=== PATIENT | female | born 1995 | race Caucasian/White ===

== ENCOUNTER 2017-06-01 06:39 | Day surgery (SDC) | payer MEDICAID, SELFPAY ==
[2017-05-31 14:27] VITALS: BMI 23.6
[2017-06-01] VITALS (9 sets, daily range): BP systolic 101–127; BP diastolic 53–81; PULSE 58–69; RESP 16–18; TEMP 36.1–36.7; O2SAT 98–100
[2017-06-01 07:00] LABS: Urine Pregnancy, HCG Qual. Negative (Negative)
--- NOTE | 2017-06-01 07:27 | HMH.ANESCL ---
[facility] Anesthesia Checklist - Patient Identification Patient Identification: Arm Band - Structural Data Admitted From: Home Planned Operative Procedure/s: right ear tube removal with tympanic membrane repair Consent for Planned Operative Procedure(s) Verified: Yes Verified Documents: Surgical Consent - Additional verifications Anesthesia Reactions: No - Airway Assessment C-Spine Mobility Assessed: Yes (MP2) TMJ Mobility Assessed: Yes Dentition: Good Dentition - Anesthesia Plan Anesthesia Risk discussed: Yes Anesthesia Plan: Verified ASA Class: II Anesthesia Type: General [facility] Anesthesia HX I have reviewed the patient's past medical history: Yes Medical History: Denies:: Cancer, Diabetes Mellitus Type 1, Diabetes Mellitus Type 2, MRSA, Seizures Other Medical History: Denies: Blood Transfusion Reaction Comment: depression, seasonal allergies, exercised induced asthma Laterality Cases: Bilateral: Myringotomy (Ear Tubes), Tonsillectomy Amputation: No Fractures: No Comment: nasal, dental
--- NOTE | 2017-06-01 08:58 | P.PN_ITS ---
[facility] [place] Anesthesia Record Part I Intake, IV Amount: 300 Estimated blood loss (mL): 0 Urine output (mL): 0 Blood Pressure: 102/58 SaO2: 98 Pulse Rate: 58 Respiratory Rate: 16 Temperature: 97 F Patient is:: Drowsy, Nasal O2, Oral/Nasal airway Stable to PACU at:: 08:50
--- NOTE | 2017-06-01 08:58 | HMH.ANESII ---
[facility] Anesthesia Record Part II Discharge Time: 09:20 Destination: [facility] PACU nurse assessment reviewed?: Yes Patient Condition:: Good Anesthesia Complications:: None
--- NOTE | 2017-06-01 08:59 | P.PN_ITS ---
[facility] Anesthesia Record Part II Discharge Time: 09:20 Destination: [facility] PACU nurse assessment reviewed?: Yes Patient Condition:: Good Anesthesia Complications:: None
--- NOTE | 2017-06-01 09:02 | HMH.OPNOTE ---
Date of procedure: 06/01/17 Pre-op Diagnosis:: Retained tympanostomy tube with granulation of the right tympanic membrane. Post-op diagnosis:: same Procedure performed:: Removal of a right tympanostomy tube with tympanic membrane repair. Surgeon:: Va Harrison MD COMMERCIAL COORDINATOR:: Earle Paz Anesthesia: GETA Estimated blood loss (mL): 5 Operative findings:: Retained right tympanostomy tube with granulation tissue at the posterior aspect of the tube. Operative note:: Patient was brought to the operating room after informed consent was obtained. General endotracheal anesthesia was induced and LMA was placed. Her right ear was draped in the usual fashion for this procedure. Under microscopic otoscopy an ear speculum was placed in the external auditory canal. Her tympanostomy tube was gently removed with the use of alligator forceps and then the existing myringotomy was debrided with the use of a Lopes needle and alligator forceps. Once the myringotomy was debrided a small Gelfoam patch was placed over the myringotomy and then bacitracin was applied over the Gelfoam patch. The ear speculum is removed and a cotton ball placed in the Rubalc[place] and the procedure was terminated. Pathology: none sent Condition: stable Disposition: PACU Complications:: None apparent
--- NOTE | 2017-06-01 09:05 | P.OP_ITS ---
Date of procedure: 06/01/17 Pre-op Diagnosis:: Retained tympanostomy tube with granulation of the right tympanic membrane. Post-op diagnosis:: same Procedure performed:: Removal of a right tympanostomy tube with tympanic membrane repair. Surgeon:: Va Harrison MD AUTOMATION DESIGN ENGINEER:: Earle Paz Anesthesia: GETA Estimated blood loss (mL): 5 Operative findings:: Retained right tympanostomy tube with granulation tissue at the posterior aspect of the tube. Operative note:: Patient was brought to the operating room after informed consent was obtained. General endotracheal anesthesia was induced and LMA was placed. Her right ear was draped in the usual fashion for this procedure. Under microscopic otoscopy an ear speculum was placed in the external auditory canal. Her tympanostomy tube was gently removed with the use of alligator forceps and then the existing myringotomy was debrided with the use of a Lopes needle and alligator forceps. Once the myringotomy was debrided a small Gelfoam patch was placed over the myringotomy and then bacitracin was applied over the Gelfoam patch. The ear speculum is removed and a cotton ball placed in the Rubalcava and the procedure was terminated. Pathology: none sent Condition: stable Disposition: PACU Complications:: None apparent
--- NOTE | 2017-06-01 10:03 | PC.NURSE ---
0850-REPORT RECIEVED FROM MAYUR MCCARTNEY AND JADONPROPERTY MANAGEMENT ASSISTANT
--- NOTE | 2017-06-01 10:08 | PC.NURSE ---
0900-ORAL AIRWAY REMOVED PER CHRISTINE DIOP. PT AWAKENING, O2 @ 2L/NC APPLIED. SATS STABLE.
--- NOTE | 2017-06-01 10:11 | PC.NURSE ---
0905-O2 @ 2L/NC REMOVED, PT SATS STABLE ON RA. 0910-PT EATING ICE CHIPS W/OUT DIFFICULTY. DENIES NAUSEA. PT REPORTS DISCOMFORT/PAIN TO RIGHT EAR AND RATES 7/10. MEDICATED PER MAR WITH TORADOL 30MG IV. VSS.
--- NOTE | 2017-06-01 10:19 | PC.NURSE ---
0916-PT REPORTS C/O NAUESA. MEDICATED PER MAR W/ZOFRAN 4MG IV. PT REPORTS PAIN IS IMPROVING TO RIGHT EAR. 18-DETAILED REPORT CALLED TO MAYUR WANG. 20-PT REPORTS NAUSEA IMPROVING AND CONTINUES TO EAT ICE CHIPS W/OUT DIFFICULTY. PT TRANSPORTED TO POST OP VIA STRETCHER W/RAILS UP AN LEFT IN CARE OF MAYUR WANG W/BED LOCKED IN LOWEST POSITION. VSS. PT STABLE.
== END 2017-06-01 09:52 | disposition home or self-care (01) ==
LOC: OR 06:42
PROVIDERS: Family Provider Internal Medicine; PCP Internal Medicine; Visit Provider Otolaryngology
PROC: (CPT 69424; principal; 2017-06-01 08:00)
DX: Z45.82 Encounter for adjustment or removal of myringotomy device (stent) (tube) (principal)
CPT/HCPCS: 69424; 69990; 81025; J2405

== ENCOUNTER 2019-12-26 16:10 | Emergency (ER) | payer BC, SELFPAY ==
[2019-12-26 16:26] VITALS: BP 118/81; PULSE 95; RESP 18; TEMP 36.7; O2SAT 98; BMI 28.8
--- NOTE | 2019-12-26 16:34 | HMH.EDUTC ---
[facility] [place] Clinical Impression: Strep throat Disposition: Home, Self-Care Condition on Discharge: Good Instructions: DI for Strep Throat, Strep Throat, Strep Throat (Alternative Therapy), Azithromycin Additional Instructions: *Monitor Temp, Over the counter Motrin or Tylenol as directed/as needed Tylenol every 4 hours and Motrin every 6 hours (as long as your family doctor has told you that you can take it) for fever or pain. and straight to ER if unable to lower temp less than 101.0 after medication given *Warm salt water gargles may help to soothe the throat *Throat Lozenges *Warm fluids like tea with honey may help to soothe the throat *Sleep elevated *Humidifier/Vaporizer *If you did not take Penicillin shot or was unable to, start taking antibiotic immediately and make sure that you take it for the FULL length of time although you should start to feel better in 24-48 hours *change toothbrush and toothpaste 24-48 hours after starting to take antibiotics so you do not reinfect yourself Monitor Temp. Tylenol and/or Ibuprofen as needed. ER if fever is no less than 101 despite alternating Tylenol and Ibuprofen * Encourage fluids, water, Gatorade, powerade, pedialyte if infant/toddler/or child *Cold fluids, popsicles and ice cream may feel good on his throat Follow up IMMEDIATELY for new or worsening symptoms or no Noticeable improvement over the next 48-72 hours. 911 for difficulty breathing or swallowing Prescriptions: Azithromycin [Z-Tyson 250mg Tab] 250 mg PO DIRECTED #6 tab Transmission Status: Pending to [facility]/pharmacy #[id number] Referrals: Cuong Galindo [Primary Care Provider] - As needed Forms: Work/School Release Medical Decision Making - Kong Inquiry Pt receiving controlled substance: No Kong was queried for this patient: No Vital Signs: 12/26/19 16:26 Temperature 98.1 F Temperature Source Oral Pulse Rate [Right Brachial] 95 H Respiratory Rate 18 Blood Pressure [Right Arm] 118/81 Blood Pressure Mean [Right Arm] 93 Blood Pressure Source [Right Arm] Automatic Cuff Blood Pressure Position [Right Arm] Sitting 02 Sat by Pulse Oximetry 98 Oxygen Delivery Method Room Air - Lab Data Lab results reviewed: Yes: I reviewed the patient's lab results. [facility] [place] - General Stated complaint: possible sinus infection, congestion Time Seen by Provider: 12/26/19 16:34 Mode of Arrival: Ambulatory Source of Information: Patient Limitations: No Limitations Description of Symptoms (Recalled from Triage Doc. by RN): PATIENT C/O SORE THROAT, COUGH WITH PHLEGM, AND NASAL CONGESTION. 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 05/22/18 Azithromycin [Z-Tyson 250mg Tab] 250 mg PO DIRECTED #6 tab 12/26/19 Allergies Allergy/AdvReac Type Severity Reaction Status Date / Time No Known Allergies Allergy Verified 12/26/19 16:32 - Worker's Comp Is this a Worker's Comp case
[2019-12-26 16:40] LABS: UTC Strep Screen (Rapid) Positive (Negative)
[2019-12-26 16:44] VITALS: BP 118/81; PULSE 95; RESP 18; TEMP 36.7; O2SAT 98
== END 2019-12-26 16:45 | disposition home or self-care (01) ==
PROVIDERS: Emergency Provider Nurse Practitioner; PCP Internal Medicine
DX: J02.0 Streptococcal pharyngitis (principal); F17.210 Nicotine dependence, cigarettes, uncomplicated; F33.1 Major depressive disorder, recurrent, moderate; Z79.899 Other long term (current) drug therapy
CPT/HCPCS: 87880; 99201

== ENCOUNTER 2020-05-11 19:20 | Emergency (ER) | payer BC, SELFPAY ==
[2020-05-11 19:21] VITALS: BP 135/75; PULSE 85; RESP 16; TEMP 36.8; O2SAT 100; BMI 28.8
[2020-05-11 19:34] VITALS: BP 135/75; PULSE 85; RESP 16; TEMP 36.8; O2SAT 100; BMI 28.8
--- NOTE | 2020-05-11 20:11 | HMH.EDUTC ---
[facility] [place] Disposition Clinical Impression: Muscle spasm of back Disposition: Home, Self-Care Condition on Discharge: Good Instructions: Methylprednisolone, DI for Muscle Spasm Additional Instructions: Tylenol every 4 hours as needed for pain *Ice 20 minutes every 2 hours for the first 48 hours after the initial injury followed by moist heat every 20 minutes 3-4 times a day to affected area *Continue Muscle relaxer every 8 hours as needed for muscle spasms as you was prescribed but remember, it WILL cause drowsiness You cannot take it and drive, operate machinery or care for small children. *Keep this area active, no movement leads to more stiffness, However take it easy and avoid heavy lifting pushing or pulling *Follow up with you family doctor if no improvement for further treatment Return if needed Straight to ER if any life threatening symptoms Prescriptions: methylPREDNISolone [Medrol 4mg tab] 4 mg PO DIRECTED #21 tab Transmission Status: Received by [facility]/pharmacy #[id number] Referrals: Cuong Galindo [Primary Care Provider] - As needed Time of Disposition: 20:42 Medical Decision Making - Kong Inquiry Pt receiving controlled substance: No Kong was queried for this patient: No Vital Signs: 05/11/20 19:21 05/11/20 19:34 Temperature 98.3 F 98.3 F Temperature Source Oral Oral Pulse Rate [Left Radial] 85 85 Respiratory Rate 16 16 Blood Pressure [Right Arm] 135/75 135/75 Blood Pressure Mean [Right Arm] 95 95 Blood Pressure Source [Right Arm] Automatic Cuff Automatic Cuff Blood Pressure Position [Right Arm] Supine Sitting 02 Sat by Pulse Oximetry 100 100 Oxygen Delivery Method Room Air Room Air Orders (Tests/Meds): ED MEDICATIONS Discontinued Medications Generic Name Dose Route Start Last Admin Trade Name Italia PRN Reason Stop Dose Admin Methylprednisolone Sodium Succinate 125 mg 05/11/20 20:17 05/11/20 20:22 Methylprednisolone Sod Succ 125mg Vial IM 05/11/20 20:18 125 mg ONCE ONE Administration Medical Decision Narrative: Patient states that her last menstrual cycle was about a week ago Denies Patient states that she was given steriod after she woke up earlier in the week having pain in her upper back/shoulder area States that she was having spasm like pain and was seen in ED in [place] and was given Steriod and NSAID States that she was allergic to the NSAID and the steriod is not working After reviewing patients medication observed that patient was not on steriod she was on Cyclobenzaprine Patient educated that she is currently on muscle relaxer for muscle spasm not steriod and she is requesting something to help with the pain discussed injection of Solu Medrol and dc patient home with medrol dose pack to help with back pain and continue taking Flexeril and will give her a few more of the medication if no improvement follow up with PCP on Wednesday [facility] [place] HPI - General Stated complaint: back pain, no accident Time Seen by Provider: 05/11/20 20:12 Mode of Arrival: Ambulatory Source of Information: Patient Limitations: No Limitations Description of Symptoms (Recalled from Triage Doc. by RN): Upper back pain ongoing for a week. Pt was seen in another ER last week and sent home on a Zpack. Pt failed to follow up with PCP. HEENT Symptoms (Recalled from RN notes): No Resp Symptoms (Recalled from RN notes): No Skin Symptoms (Recalled from RN notes): No MS Symptoms (Recalled from RN notes): Yes Functional Status (Recalled from RN notes): wnl - History of Present Illness Provider Complaint: Patient states that she was seen in ER in [place] on Wednesday after she woke up and was having muscle spasm like pain in her upper shoulder/back area States that she was given Nsaid and she was allergic and given Steriod and it has not helped States that her PCP is not in until Wednesday and came in to see if there was something she could get to help her until she can see her PCP Denies new injury - R
[2020-05-11 20:46] VITALS: BP 135/75; PULSE 85; RESP 16; TEMP 36.8; O2SAT 100
== END 2020-05-11 20:47 | disposition home or self-care (01) ==
PROVIDERS: Emergency Provider Nurse Practitioner; PCP Internal Medicine
DX: M62.830 Muscle spasm of back (principal); F17.210 Nicotine dependence, cigarettes, uncomplicated; M54.6 Pain in thoracic spine
CPT/HCPCS: 96372; 99201

== ENCOUNTER 2020-08-13 19:39 | Emergency (ER) | payer BC, SELFPAY ==
[2020-08-13 20:01] VITALS: BP 132/60; PULSE 70; RESP 16; TEMP 36.9; O2SAT 98; BMI 28.1
[2020-08-13 20:05] LABS: UTC Strep Screen (Rapid) Negative (Negative)
--- NOTE | 2020-08-13 20:30 | HMH.EDUTC ---
[place] Disposition Clinical Impression: Sore throat (viral) Disposition: Home, Self-Care Condition on Discharge: Good Instructions: Sore Throat, Fluticasone Nasal [place] Additional Instructions: *Monitor Temp, Over the counter Motrin or Tylenol as directed/as needed Tylenol every 4 hours and Motrin every 6 hours (as long as your family doctor has told you that you can take it) for fever or pain. and straight to ER if unable to lower temp less than 101.0 after medication given *Warm salt water gargles may help to soothe the throat *Throat Lozenges *Warm fluids like tea with honey may help to soothe the throat *Sleep elevated *Humidifier/Vaporizer *Flonase 2 sprays in each nostril daily but be aware that it may take 2-3 days before you notice improvement Your throat swab was sent for culture. Those results are typically sent to your primary care. Be sure to follow up in 2-3 days with your family doctor/primary care physician if no improvement so they can review those result and treat if necessary. If you don?t have a primary care doctor, I recommend you get one but in the mean time, you will have to return to a walk in clinic Follow up IMMEDIATELY for new or worsening symptoms or no Noticeable improvement over the next 48-72 hours. 911 for difficulty breathing or swallowing Prescriptions: Fluticasone Propionate [Flonase 50mcg nasal spray 16gm] 1 spr NS DAILY #1 bottle Transmission Status: Pending to [facility]/pharmacy #[id number] Referrals: Cuong Galindo [Primary Care Provider] - As needed Time of Disposition: 20:36 Medical Decision Making - Kong Inquiry Pt receiving controlled substance: No Kong was queried for this patient: No Vital Signs: 08/13/20 20:01 Temperature 98.4 F Temperature Source Oral Pulse Rate [Right] 70 Respiratory Rate 16 Blood Pressure [Right Arm] 132/60 Blood Pressure Mean [Right Arm] 84 Blood Pressure Source [Right Arm] Automatic Cuff Blood Pressure Position [Right Arm] Sitting 02 Sat by Pulse Oximetry 98 Oxygen Delivery Method Room Air - Lab Data Lab results reviewed: Yes: I reviewed the patient's lab results. Lab Results 08/13/20 20:03: Strep Scn Rapid [facility] Negative Orders (Tests/Meds): ORDERS Category Date Time Status Strep Screen Confirmation Stat Micro 08/13/20 20:03 Received [place] HPI - General Stated complaint: sore throat Time Seen by Provider: 08/13/20 20:30 Mode of Arrival: Ambulatory Source of Information: Patient Limitations: No Limitations Description of Symptoms (Recalled from Triage Doc. by RN): pt c/o sore throat HEENT Symptoms (Recalled from RN notes): Yes (sore throat) Resp Symptoms (Recalled from RN notes): No Skin Symptoms (Recalled from RN notes): No MS Symptoms (Recalled from RN notes): No Functional Status (Recalled from RN notes): n - History of Present Illness Provider Complaint: Patient state that she has been having sore throat for several days that has not got any better States that she was worried that she may have strep throat and wanted to get tested - Related Data Home Medications Medication Instructions Recorded Confirmed Cetirizine HCl [Zyrtec] 10 mg PO DAILY 05/31/17 04/07/18 PARoxetine HCL [Paxil] 30 mg PO DAILY 05/31/17 04/07/18 L.acidoph,Paracasei, B.lactis 1 each PO DAILY 04/07/18 04/07/18 [Probiotic] azaTHIOprine [azaTHIOprine 50mg 50 mg PO DAILY 04/07/18 04/07/18 Tablet] Previous Rx's Medication Instructions Recorded Butenafine HCl [Lotrimin Ultra] 0.5 inch TOPICAL TID #30 cream..g. 05/22/18 Azithromycin [Z-Tyson 250mg Tab] 250 mg PO DIRECTED #6 tab 12/26/19 methylPREDNISolone [Medrol 4mg 4 mg PO DIRECTED #21 tab 05/11/20 tab] Fluticasone Propionate [Flonase 1 spr NS DAILY #1 bottle 08/13/20 50mcg nasal spray 16gm] Allergies Allergy/AdvReac Type Severity Reaction Status Date / Time NSAIDS (Non-Steroidal Allergy Verified 05/11/20 19:40 Anti-Inflamma - Worker's Comp Is t
[2020-08-13 20:34] VITALS: BP 132/64; PULSE 70; RESP 16; TEMP 36.9; O2SAT 98
== END 2020-08-13 20:42 | disposition home or self-care (01) ==
PROVIDERS: Emergency Provider Nurse Practitioner; PCP Internal Medicine
DX: J02.9 Acute pharyngitis, unspecified (principal); F17.210 Nicotine dependence, cigarettes, uncomplicated; Z88.6 Allergy status to analgesic agent; Z79.899 Other long term (current) drug therapy
CPT/HCPCS: 87880; 99202; G0463

== ENCOUNTER 2020-12-21 11:45 | Emergency (ER) | payer BC, SELFPAY ==
[2020-12-21 11:45] VITALS: BP 129/85; PULSE 95; RESP 20; TEMP 36.8; O2SAT 98; BMI 31.9
[2020-12-21 12:25] LABS: UTC Strep Screen (Rapid) Positive (Negative)
--- NOTE | 2020-12-21 12:34 | HMH.EDUTC ---
[facility] [place]ression: Strep pharyngitis Disposition: Home, Self-Care Condition on Discharge: Good Instructions: DI for Strep Throat Additional Instructions: Take all antibiotics as prescribed until gone. Replace toothbrush. Prescriptions: Amoxicillin/Potassium Clav [Amox-Clav 875-125 mg Tablet] 1 tab PO BID #20 tab Transmission Status: Pending to [facility]/pharmacy #[id number] Referrals: Cuong Galindo [Primary Care Provider] - Time of Disposition: 12:38 Medical Decision Making - Kong Inquiry Pt receiving controlled substance: No Vital Signs: 12/21/20 11:45 Temperature 98.3 F Temperature Source Oral Pulse Rate [Left Radial] 95 H Respiratory Rate 20 Blood Pressure [Right Arm] 129/85 Blood Pressure Mean [Right Arm] 99 Blood Pressure Source [Right Arm] Automatic Cuff Blood Pressure Position [Right Arm] Sitting 02 Sat by Pulse Oximetry 98 Oxygen Delivery Method Room Air - Lab Data Lab results reviewed: Yes: I reviewed the patient's lab results. Lab Results 12/21/20 12:10: Strep [facility] Positive A Orders (Tests/Meds): ORDERS Category Date Time Status Covid-19 Nasal PCR ([facility]) Routine Lab 12/21/20 12:16 [place] [facility] [place] - General Stated complaint: strep test Time Seen by Provider: 12/21/20 12:34 Mode of Arrival: Ambulatory Source of Information: Patient Limitations: No Limitations Description of Symptoms (Recalled from Triage Doc. by RN): c/o sore throat , cough and congestion for 2 days HEENT Symptoms (Recalled from RN notes): Yes Resp Symptoms (Recalled from RN notes): No Skin Symptoms (Recalled from RN notes): No MS Symptoms (Recalled from RN notes): No Functional Status (Recalled from RN notes): wnl - History of Present Illness Provider Complaint: Cough, congestion, sore throat X 2 days. No fever. Onset (ago): day(s) (2) Relieving factors: none Exacerbating factors: none Treatments prior to arrival: none - Related Data Home Medications Medication Instructions Recorded Confirmed Cetirizine HCl [Zyrtec] 10 mg PO DAILY 05/31/17 04/07/18 PARoxetine HCL [Paxil] 30 mg PO DAILY 05/31/17 04/07/18 L.acidoph,Paracasei, B.lactis 1 each PO DAILY 04/07/18 04/07/18 [Probiotic] azaTHIOprine [azaTHIOprine 50mg 50 mg PO DAILY 04/07/18 04/07/18 Tablet] Previous Rx's Medication Instructions Recorded Butenafine HCl [Lotrimin Ultra] 0.5 inch TOPICAL TID #30 cream..g. 05/22/18 Azithromycin [Z-Tyson 250mg Tab] 250 mg PO DIRECTED #6 tab 12/26/19 methylPREDNISolone [Medrol 4mg 4 mg PO DIRECTED #21 tab 05/11/20 tab] Fluticasone Propionate [Flonase 1 spr NS DAILY #1 bottle 08/13/20 50mcg nasal spray 16gm] Amoxicillin/Potassium Clav 1 tab PO BID #20 tab 12/21/20 [Amox-Clav 875-125 mg Tablet] Allergies Allergy/AdvReac Type Severity Reaction Status Date / Time NSAIDS (Non-Steroidal Allergy Verified 05/11/20 19:40 Anti-Inflamma - Worker's Comp Is this a Worker's Comp case?: No [facility] History - Hepatitis A Screen Drug use history?: No High risk sexual behaviors?: No History of sexually transmitted infection?: No Currently employed?: No Childcare worker?: No Do you have indoor plumbing?: Yes Do you have electricity?: Yes Attestation statement:: This patient has been screened for Hepatitis A risk factors. I have reviewed the patient's past medical history: Yes Medical History: Denies:: Cancer, Diabetes Mellitus Type 1, Diabetes Mellitus Type 2, MRSA, Seizures Other Medical History: Denies: Blood Transfusion Reaction Comment: depression, seasonal allergies, exercised induced asthma Laterality Cases: Bilateral: Myringotomy (Ear Tubes), Tonsillectomy Amputation: No Fractures: No Comment: nasal, dental - Social History Smoking Status: Current every day smoker Tobacco Type: cigarettes # Packs/Day (cigarettes): 1 #Yrs smoked (if former smoker): 3 Alcohol Intake: never Alcohol Intake Frequency:: other 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
[2020-12-21 12:43] VITALS: BP 129/85; PULSE 95; RESP 20; TEMP 36.8; O2SAT 98
== END 2020-12-21 12:44 | disposition home or self-care (01) ==
PROVIDERS: Emergency Provider Physician Assistant; PCP Internal Medicine
DX: J02.0 Streptococcal pharyngitis (principal); F17.210 Nicotine dependence, cigarettes, uncomplicated
CPT/HCPCS: 87880; 99203; G0463; U0003

== ENCOUNTER 2021-02-27 10:44 | Emergency (ER) | payer BC, SELFPAY ==
[2021-02-27 11:25] VITALS: BP 134/88; PULSE 81; RESP 14; TEMP 36.7; O2SAT 98; BMI 31.9
--- NOTE | 2021-02-27 12:13 | HMH.EDUTC ---
[facility] [place] Clinical Impression: Poison gladys Disposition: Home, Self-Care Condition on Discharge: Good Instructions: Poison Gladys, Poison Butler, Poison Sumac, DI for Poison Gladys Allergy, Methylprednisolone Injection Additional Instructions: Avoid contact with the offending substance. Don't start the oral steroids until tomorrow. Take benedryl regularly for the next few days to help with your itching. Follow up with your regular doctor. GO TO THE ER FOR ANY WORSENING SYMPTOMS OR CONCERNS Prescriptions: methylPREDNISolone [Medrol] 4 mg PO DIRECTED 6 Days #21 packet Transmission Status: Received by [id number] Referrals: Cuong Galindo [Primary Care Provider] - Forms: Work/School Release Time of Disposition: 12:28 Medical Decision Making - Medical Records Medical records reviewed: No: I reviewed the patient's medical records. - Kong Inquiry Pt receiving controlled substance: No Vital Signs: 02/27/21 11:25 02/27/21 12:35 Temperature 98.1 F 98.1 F Temperature Source Oral Pulse Rate 81 Pulse Rate [Left] 81 Respiratory Rate 14 18 Blood Pressure 134/88 Blood Pressure [Right Arm] 134/88 Blood Pressure Mean [Right Arm] 103 02 Sat by Pulse Oximetry 98 Orders (Tests/Meds): ED MEDICATIONS Discontinued Medications Generic Name Dose Route Start Last Admin Trade Name Italia PRN Reason Stop Dose Admin Methylprednisolone Sodium Succinate 125 mg 02/27/21 12:26 02/27/21 12:34 Methylprednisolone Sod Succ 125mg Vial IM 02/27/21 12:27 125 mg ONCE ONE Administration [facility] [place] - General Stated complaint: posion gladys on neck and around eye Time Seen by Provider: 02/27/21 12:24 Mode of Arrival: Ambulatory Source of Information: Patient Limitations: No Limitations Description of Symptoms (Recalled from Triage Doc. by RN): pt c/o of a rash from poison gladys. pt was exposed to it 02/24. the rash is on the front of her neck and spreads up around her mouth. HEENT Symptoms (Recalled from RN notes): No Resp Symptoms (Recalled from RN notes): No Skin Symptoms (Recalled from RN notes): Yes (rash on neck and face) MS Symptoms (Recalled from RN notes): No Functional Status (Recalled from RN notes): na - History of Present Illness Provider Complaint: She states that for the past 3 days she has progressively worsening rash and itching of the right side of her face and the right side of her neck. She was exposed to poison gladys around 5 days ago. She has a history of being very sensitive to poison gladys. - Related Data Home Medications Medication Instructions Recorded Confirmed Cetirizine HCl [Zyrtec] 10 mg PO DAILY 05/31/17 04/07/18 PARoxetine HCL [Paxil] 30 mg PO DAILY 05/31/17 04/07/18 L.acidoph,Paracasei, B.lactis 1 each PO DAILY 04/07/18 04/07/18 [Probiotic] azaTHIOprine [azaTHIOprine 50mg 50 mg PO DAILY 04/07/18 04/07/18 Tablet] Previous Rx's Medication Instructions Recorded Butenafine HCl [Lotrimin Ultra] 0.5 inch TOPICAL TID #30 cream..g. 05/22/18 Azithromycin [Z-Tyson 250mg Tab] 250 mg PO DIRECTED #6 tab 12/26/19 methylPREDNISolone [Medrol 4mg 4 mg PO DIRECTED #21 tab 05/11/20 tab] Fluticasone Propionate [Flonase 1 spr NS DAILY #1 bottle 08/13/20 50mcg nasal spray 16gm] Amoxicillin/Potassium Clav 1 tab PO BID #20 tab 12/21/20 [Amox-Clav 875-125 mg Tablet] methylPREDNISolone [Medrol] 4 mg PO DIRECTED 6 Days #21 02/27/21 packet Allergies Allergy/AdvReac Type Severity Reaction Status Date / Time NSAIDS (Non-Steroidal Allergy Verified 05/11/20 19:40 Anti-Inflamma - Worker's Comp Is this a Worker's Comp case?: No H History - Hepatitis A Screen Drug use history?: No High risk sexual behaviors?: No History of sexually transmitted infection?: No Currently employed?: No Childcare worker?: No Do you have indoor plumbing?: Yes Do you have electricity?: Yes Attestation statement:: This patient has been screen
[2021-02-27 12:35] VITALS: BP 134/88; PULSE 81; RESP 18; TEMP 36.7
== END 2021-02-27 12:48 | disposition home or self-care (01) ==
PROVIDERS: Emergency Provider Nurse Practitioner Family; PCP Internal Medicine
DX: L23.7 Allergic contact dermatitis due to plants, except food (principal); F17.210 Nicotine dependence, cigarettes, uncomplicated
CPT/HCPCS: 96372; 99202; G0463

== ENCOUNTER 2021-10-08 08:08 | Emergency (ER) | payer BC, SELFPAY ==
[2021-10-08 08:08] VITALS: BP 141/102; PULSE 77; RESP 18; TEMP 36.8; O2SAT 99; BMI 31.9
--- NOTE | 2021-10-08 08:29 | HMH.EDBACK ---
ED Disposition Clinical Impression: Thoracic back sprain Disposition: Home, Self-Care Condition on Discharge: Good Instructions: DI for Back Strain or Sprain Additional Instructions: Please follow-up with your primary care physician in 2 to 3 days for further management. You have also been referred to physical therapy if symptoms persist. Please utilize the lidocaine patches and Robaxin as needed for symptomatic control. May also supplement with Tylenol. Please return to the emergency department for any concerning symptoms such as inability to ambulate, numbness, weakness, symptoms that do not improve or any other worsening symptoms. 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 The time I documented below is in addition to time spent performing reported procedures but includes the following listed in this critical care notation. Medical Decision Making - Medical Records Medical records reviewed: Yes: I reviewed the patient's medical records. - Kong Inquiry Pt receiving controlled substance: No Vital Signs: 10/08/21 08:08 10/08/21 09:46 Temperature 98.2 F 98.1 F Temperature Source Oral Pulse Rate 86 Pulse Rate [Right Radial] 77 Respiratory Rate 18 15 Blood Pressure 138/97 H Blood Pressure [Right Arm] 141/102 H Blood Pressure Mean [Right Arm] 115 Blood Pressure Source [Right Arm] Automatic Cuff Blood Pressure Position [Right Arm] Sitting 02 Sat by Pulse Oximetry 99 Oxygen Delivery Method Room Air - Lab Data Lab results reviewed: Yes: I reviewed the patient's lab results. Orders (Tests/Meds): ED MEDICATIONS Discontinued Medications Generic Name Dose Route Start Last Admin Trade Name Freq PRN Reason Stop Dose Admin Acetaminophen 1,000 mg 10/08/21 08:27 10/08/21 08:35 Acetaminophen 500mg Tab PO 10/08/21 08:28 1,000 mg ONCE ONE Administration Lidocaine 1 each 10/08/21 08:26 10/08/21 08:35 Lidocaine 5% Transdermal Patch TP 10/08/21 08:27 1 each ONCE ONE Administration Methocarbamol 500 mg 10/08/21 09:00 10/08/21 08:35 Methocarbamol 500mg Tablet PO 11/07/21 08:59 500 mg BID CORTEZ Administration Medical Decision Narrative: Mrs. David is a 26-year-old female with past medical history for chronic back pain presenting to the emergency department with 24 hours of fevers thoracic spinal tenderness. Patient is ambulatory prior to arrival. Patient is neurovascularly intact and hemodynamically stable. No sensorimotor changes on exam. Patient denies any numbness or weakness in extremities or shooting pains. No other neurological deficits. Patient denies any inciting trauma low suspicion for fracture or acute osseous finding at this time. Furthermore patient has had symptoms for many years. No imaging warranted at this time. Patient denies any weight loss, fevers, IVDU, DM, ambulatory difficulties, other red flag signs. Patient is given lidocaine patches, Robaxin and Tylenol for symptomatic relief. Upon reassessment patient reports symptoms have improved. Symptoms consistent with back sprain. Patient is instructed to take Robaxin, Tylenol and lidocaine patches as prescribed. Patient will follow up with primary care physician in 2 to 3 days. Patient also provided an outpatient prescription to physical therapy. Patient instructed to return for any concerning symptoms such as inability to ambulate, urinary retention, fecal incontinence, numbness, weakness or any other concerns. Back Pain HPI - General
[2021-10-08 09:46] VITALS: BP 138/97; PULSE 86; RESP 15; TEMP 36.7; O2SAT 99
== END 2021-10-08 09:47 | disposition home or self-care (01) ==
PROVIDERS: Emergency Provider Student in an Organized Health Care Education/Training Program; PCP Internal Medicine
DX: M54.6 Pain in thoracic spine (principal); R50.9 Fever, unspecified; Z72.0 Tobacco use
CPT/HCPCS: 99283

== ENCOUNTER 2022-04-14 12:18 | Emergency (ER) | payer BC, SELFPAY ==
--- NOTE | 2022-04-14 13:22 | EXP.UTC ---
Discharge Plan Disposition Patient Disposition: Home, Self-Care Condition: Good Prescriptions Prescriptions: New esomeprazole magnesium 40 mg capsule,delayed release(DR/EC) 40 mg PO DAILY 30 Days Qty: 30 2RF No Action butenafine [Lotrimin Ultra] 12 GM cream 0.5 inch topical TID Qty: 30 0RF azithromycin 250 MG tablet 250 mg PO DIRECTED Qty: 6 0RF Rx Instructions: Take two (2) tablets on day #1, then one (1) tablet day #2 thru #5 amoxicillin-pot clavulanate 1 EACH tablet 1 tab PO BID Qty: 20 0RF cetirizine [Zyrtec] 10 MG tablet 10 mg PO DAILY paroxetine HCl [Paxil] 30 MG tablet 30 mg PO DAILY azathioprine [Imuran] 50 MG tablet 50 mg PO DAILY L.acidoph, paracasei,B. 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 Instructions Additional Instructions/Restrictions: Drink plenty of fluids. Don't eat after 6:00 pm. Avoid any foods that make your symptoms worse. Take the medications as directed. Follow up with your regular doctor. Follow up with your GI specialist. GO TO THE ER FOR ANY WORSENING SYMPTOMS Clinical Impressions Clinical Impression: Acid reflux Instructions Patient Instructions: DI for Gastroesophageal Reflux Disease (GERD), Esomeprazole Discharge ED Provider: Juan Ochoa [facility] General Stated complaint: Persistant heartburn Time Seen by Provider: 04/14/22 13:22 History of Present Illness Provider Complaint: She states that over the past 2 weeks she has had worsening heart burn symptoms. She has a history of Crohn's disease and she is worried that she may be getting a stomach ulcer. She has took otc pepcid, tums, and pepto bismol without much relief. She cannot identify anything that really helps her symptoms or makes them worse. Related Data Home Medications Medication Instructions Recorded Confirmed cetirizine 10 mg tablet (Zyrtec) 10 mg PO DAILY allergies 05/31/17 04/07/18 paroxetine HCl 30 mg tablet (Paxil) 30 mg PO DAILY mood 05/31/17 04/07/18 L.acidoph, paracasei,B. lactis 10 1 ea PO DAILY crohns 04/07/18 04/07/18 billion cell capsule azathioprine 50 mg tablet (Imuran) 50 mg PO DAILY crohns 04/07/18 04/07/18 Previous Rx's Medication Instructions Recorded butenafine 1 % topical cream 0.5 inch topical TID ##30 05/22/18 (Lotrimin Ultra) azithromycin 250 mg tablet 250 mg PO DIRECTED #6 tabs 12/26/19 methylprednisolone 4 mg tablet 4 mg PO DIRECTED #21 tabs 05/11/20 fluticasone propionate 50 1 spr NS DAILY ##1 08/13/20 mcg/actuation nasal spray,suspension amoxicillin 875 mg-potassium 1 tab PO BID #20 tabs 12/21/20 clavulanate 125 mg tablet methylprednisolone 4 mg tablets in 4 mg PO DIRECTED 6 days #21 02/27/21 a dose pack packets methocarbamol 750 mg tablet 750 mg PO Q6HP PRN (Street Photographer Use Only) 10/08/21 Pain Per Pt #30 tabs esomeprazole magnesium 40 mg 40 mg PO DAILY 30 days #30 caps 04/14/22 capsule,delayed release Allergies Allergy/AdvReac Type Severity Reaction Status Date / Time NSAIDS (Non-Steroidal Allergy Verified 04/14/22 13:37 Anti-Inflamma PFSH PFS Social History Smoking Status: Current every day smoker tobacco type: cigarettes packs per day: 1 second hand exposure: Yes alcohol intake: never current occupational status: other Travel in the last 8 weeks: None ho
[2022-04-14 13:33] VITALS: BP 145/96; PULSE 89; RESP 18; TEMP 36.6; O2SAT 100; BMI 31.9
[2022-04-14 14:14] VITALS: BP 145/96; PULSE 89; RESP 18; TEMP 36.6
== END 2022-04-14 14:16 | disposition home or self-care (01) ==
PROVIDERS: Emergency Provider Nurse Practitioner Family; PCP Internal Medicine
DX: K21.9 Gastro-esophageal reflux disease without esophagitis (principal); R94.31 Abnormal electrocardiogram [ECG] [EKG]; K50.90 Crohn's disease, unspecified, without complications; F17.210 Nicotine dependence, cigarettes, uncomplicated; Z79.51 Long term (current) use of inhaled steroids; Z79.52 Long term (current) use of systemic steroids; Z79.899 Other long term (current) drug therapy; Z88.6 Allergy status to analgesic agent
CPT/HCPCS: 99213; G0463

== ENCOUNTER 2022-08-15 11:23 | Emergency (ER) | payer BC, SELFPAY ==
[2022-08-15 11:30] VITALS: BP 126/75; PULSE 84; RESP 20; TEMP 36.6; O2SAT 100; BMI 31.9
--- NOTE | 2022-08-15 11:33 | CT_ITS ---
PROCEDURE INFORMATION: Exam: CT Neck With Contrast Exam date and time: 08/15/2022 12:39 PM Age: 27 years old Clinical indication: Abscess, pharyngeal; Additional info: Concern for right sided abscess TECHNIQUE: Imaging protocol: Computed tomography of the neck with contrast. Radiation optimization: All CT scans at this facility use at least one of these dose optimization techniques: automated exposure control; mA and/or kV adjustment per patient size (includes targeted exams where dose is matched to clinical indication); or iterative reconstruction. Contrast material: ISOVUE; Contrast volume: 75 ml; Contrast route: IV; REPORTING DATA: Count of CT and Cardiac NM exams in prior 12 months: This patient has received 0 known CTs and 0 known cardiac nuclear medicine studies in the 12 months prior to the current study. COMPARISON: No relevant prior studies available. FINDINGS: Mastoid air cells: Mastoids appear poorly pneumatized on a chronic basis, no acute effusion/air-fluid levels as visualized. Paranasal sinuses: No acute findings in the visualized sinuses. No significant sinus opacification or air-fluid levels. Minimal ethmoid mucosal thickening. Pharynx: Minimal adenoid hypertrophy. No acute findings in the nasopharynx. Minimal asymmetric right tonsillar thickening compared with left. No significant swelling. No peritonsillar abscess. Metallic piercing noted in the tongue, no loculated fluid collection in the oropharynx to suggest an abscess. Oropharynx and floor of mouth are otherwise unremarkable. Hypopharynx appears normal, no mass or airway obstruction. Larynx: The larynx is unremarkable. Vocal cords and epiglottis appear normal. Prevertebral and retropharyngeal spaces: Unremarkable. Salivary glands: Parotid and submandibular glands are unremarkable. Thyroid: There is a 1 cm hypoattenuating solid-appearing nodule at the inferior tip of the left lower pole thyroid, coronal series 1001, image 28 and axial series 3, image 72. Lymph nodes: No significantly enlarged lymph nodes by short axis criteria. Trachea: The visualized upper trachea appears normal, distal trachea was not included in the field of view. Lungs: Visualized lung apices are unremarkable. Bones/joints: Cervical spine degenerative changes, with posterior disc protrusion toward the right at C5-C6, which indents the cord on the right, moderately stenoses the spinal canal toward the right, and likely impinges on the right C6 nerve root; see series 3, images 52 -54, and sagittal series 1002, images 26-28. There is mild disc space narrowing and spondylosis at this level. No acute fracture, as visualized. Soft tissues: There are no soft tissue masses or fluid collections. IMPRESSION: 1. No abscess collection detected in the neck. 2. Degenerative disc disease and spondylosis at C5-C6; right posterior paracentral disc protrusion moderately stenoses the spinal canal toward the right. The disc hernia indents the cord and likely impinges on the right C6 nerve root. Correlate for radiculopathy. 3. A 1 cm left lower pole thyroid nodule. Follow-up nonemergent thyroid ultrasound recommended per ACR guidelines below. 4. Additional nonemergency and chronic findings as above. COMMENTS: Consistent with the [employer]'s Incidental Findings Committee white paper (J Am Nirav Radiol 2015): In patients under 35 years old with an incidental thyroid nodule equal to or greater than [address], MRI or extrathyroidal US, further evaluation with dedicated thyroid US is recommended for patients with normal life expectancy and without comorbidities. Gloria amor
[2022-08-15 12:04] LABS: Chloride 104 mmol/L (98-107)
[2022-08-15 12:05] LABS: Basophils # 0.1 K/mm3 (0-0.2); Eosinophils # 0.1 K/mm3 (0.0-0.4); Lymphocytes # 1.9 K/mm3 (0.7-4.5); Lymphocytes % 16.4 % (10-50); Mean Corpuscular HGB Conc 32.6 g/dL (31.8-35.4); Mean Corpuscular Volume 92.3 fl (81-99); Monocytes # 0.4 K/mm3 (0.1-1.0); Monocytes % 3.4 % (1.7-9.3); Neutrophils % 78.3 % (37.0-80.0); Platelet Count 398 K/mm3 (142-424); Potassium 3.6 mmoL/L (3.5-5.1); Red Blood Count 4.66 M/mm3 (4.20-5.40); Sodium 139 mmol/L (136-145); White Blood Count 11.5 K/mm3 (4.8-10.8)
[2022-08-15 12:07] LABS: Alanine Aminotransferase 18 U/L (12-78); Alkaline Phosphatase 77 U/L (38-126); Anion Gap 14.6 mEq/L (5-15); Aspartate Amino Transferase 26 U/L (14-36); Bilirubin,Total 0.4 mg/dl (0.2-1.3); Blood Urea Nitrogen 6 mg/dl (7-17); Carbon Dioxide 24 mmol/L (22.0-30.0); Creatinine Clearance Estimated 183 mL/min (50-200); Estimated Glomerular Filt Rate 101 ml/min (>60); GFR (African American) 122 ML/MIN (>60)
[2022-08-15 12:08] LABS: Albumin Level 4.7 g/dl (3.5-5.0); Albumin/Globulin Ratio 1.4 (1.1-1.8); Calcium 9.2 mg/dl (8.4-10.2); Globulin 3.4 g/dL (1.3-3.2); Glucose 79 mg/dl (74-100); Total Protein,Serum 8.1 g/dl (6.3-8.2)
[2022-08-15 12:13] LABS: C-Reactive Protein 4.3 mg/L (0-4)
[2022-08-15 12:27] LABS: HCG Qualitative, Serum Negative (Negative)
--- NOTE | 2022-08-15 12:49 | HMH.EDGENADL ---
Discharge Plan Disposition Patient Disposition: Home, Self-Care Condition: Fair Prescriptions Prescriptions: No Action butenafine [Lotrimin Ultra] 12 GM cream 0.5 inch topical TID Qty: 30 0RF azithromycin 250 MG tablet 250 mg PO DIRECTED Qty: 6 0RF Rx Instructions: Take two (2) tablets on day #1, then one (1) tablet day #2 thru #5 amoxicillin-pot clavulanate 1 EACH tablet 1 tab PO BID Qty: 20 0RF cetirizine [Zyrtec] 10 MG tablet 10 mg PO DAILY paroxetine HCl [Paxil] 30 MG tablet 30 mg PO DAILY azathioprine [Imuran] 50 MG tablet 50 mg PO DAILY L.acidoph, paracasei,B. 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) Qty: 30 0RF esomeprazole magnesium 40 mg capsule,delayed release(DR/EC) 40 mg PO DAILY 30 Days Qty: 30 2RF Referrals Follow up/Referrals: Cuong Galindo [Primary Care Provider] - See instructions Clinical Impressions Clinical Impression: Acute viral syndrome Instructions Patient Instructions: DI for Viral Syndrome Discharge ED Provider: Silver Sims General Adult HPI General Chief complaint: Neck Pain/Injury Stated complaint: pain in neck, no accident Time Seen by Provider: 08/15/22 11:30 Mode of Arrival: Ambulatory Source of Information: Patient Limitations: No Limitations Description of Symptoms (Recalled from ER Triage Doc. by RN): pt to ed c/o right sided neck pain since wednesday. pt states her neck is tender on palpation and hurts to swallow. pt reports a headache associated. History of Present Illness HPI narrative: Patient is a 27-year-old female with a past medical history of Crohn's disease currently on [employer] who presents with right-sided neck pain. She states that she started to get this on Wednesday and is gotten progressively worse. She says that her neck is now gone very tender when she touches it and she is also noted that it is started hurting when she swallows. She says that today she decided to come in because her symptoms were getting worse and she started develop a headache as well. She denies any fever or chills. Denies any cough. She says it does hurt when she turns her head to the left. Denies any numbness or tingling into her extremities. Related Data Home Medications Medication Instructions Recorded Confirmed cetirizine 10 mg tablet (Zyrtec) 10 mg PO DAILY allergies 05/31/17 04/07/18 paroxetine HCl 30 mg tablet (Paxil) 30 mg PO DAILY mood 05/31/17 04/07/18 L.acidoph, paracasei,B. lactis 10 1 ea PO DAILY crohns 04/07/18 04/07/18 billion cell capsule azathioprine 50 mg tablet (Imuran) 50 mg PO DAILY crohns 04/07/18 04/07/18 Previous Rx's Medication Instructions Recorded butenafine 1 % topical cream 0.5 inch topical TID ##30 05/22/18 (Lotrimin Ultra) azithromycin 250 mg tablet 250 mg PO DIRECTED #6 tabs 12/26/19 methylprednisolone 4 mg tablet 4 mg PO DIRECTED #21 tabs 05/11/20 fluticasone propionate 50 1 spr NS DAILY ##1 08/13/20 mcg/actuation nasal spray,suspension amoxicillin 875 mg-potassium 1 tab PO BID #20 tabs 12/21/20 clavulanate 125 mg tablet methylprednisolone 4 mg tablets in 4 mg PO DIRECTED 6 days #21 02/27/21 a dose pack packets methocarbamol 750 mg tablet 750 mg PO Q6HP PRN (Brake Lining Finisher Use Only) 10/08/21 Pain Per Pt #30 tabs esomeprazole magnesium 40 mg 40 mg PO DAILY 30 days #30 caps 04/14/22 capsule,delayed release Allergies Allergy/AdvReac Type Severity Reaction Status Date / Time NSAIDS (Non-Steroidal Allergy Verified 04/14/22 13:37 Anti-Inflamma
[2022-08-15 12:59] LABS: Procalcitonin < 0.030 ng/mL (0.0-2.0)
[2022-08-15 14:38] VITALS: BP 123/69; PULSE 85; RESP 16; TEMP 36.8; O2SAT 98
== END 2022-08-15 14:40 | disposition home or self-care (01) ==
PROVIDERS: Emergency Provider Student in an Organized Health Care Education/Training Program; PCP Internal Medicine
DX: M54.2 Cervicalgia (principal); R51.9 Headache, unspecified; B34.9 Viral infection, unspecified
CPT/HCPCS: 70491; 80053; 84145; 84703; 85025; 86140; 96360; 96374; 96375; 99284; 99285; Q9967

== ENCOUNTER 2023-05-26 11:06 | Emergency (ER) | payer BC, MEDICAID, SELFPAY ==
[2023-05-26 11:20] VITALS: BP 121/68; PULSE 86; RESP 19; TEMP 36.8; O2SAT 98; BMI 33.8
--- NOTE | 2023-05-26 11:36 | ED_ITS ---
Discharge Plan Disposition Patient Disposition: Home, Self-Care Condition: Good Prescriptions Prescriptions: No Action escitalopram oxalate 10 mg tablet 10 mg PO DAILY Patient Comments: TAKE 1 TABLET BY MOUTH EVERY DAY Stelara 90 mg/mL syringe See Rx Instructions .ROUTE .COMPLEX Rx Instructions: every 56 days Linzess 145 mcg capsule 145 mcg PO DAILY Patient Comments: TAKE 1 CAPSULE BY MOUTH EVERY DAY DIRECTED FOR 90 DAYS cetirizine [Zyrtec] 10 MG tablet 10 mg PO DAILY azathioprine [Imuran] 50 MG tablet 50 mg PO DAILY rhea Terry B. lactis 1 EACH capsule 1 ea PO DAILY fluticasone propionate 120 SPR/BOT bottle 1 spr NS DAILY Qty: 1 0RF Rx Instructions: each nostril daily Referrals Follow up/Referrals: Cuong Galindo [Primary Care Provider] - See instructions Activity Restrictions/Add. Instructions Additional Instructions/Restrictions: *Monitor Temp, Over the counter Motrin or Tylenol as directed/as needed Tylenol every 4 hours and Motrin every 6 hours (as long as your family doctor has told you that you can take it) for fever or pain. and straight to ER if unable to lower temp less than 101.0 after medication given *Warm salt water gargles may help to soothe the throat *Throat Lozenges? *Warm fluids like tea with honey may help to soothe the throat? *Sleep elevated *Humidifier/Vaporizer *Flonase 2 sprays in each nostril daily but be aware that it may take 2-3 days before you notice improvement Speak to your OBGYN for what they recommend over the counter for your nasal congestion and cough Follow up IMMEDIATELY for new or worsening symptoms or no Noticeable improvement over the next 48-72 hours. 911 for difficulty breathing or swallowing You were tested for today for COVID19 your test result should be back in the next 24-48 hours, you may check your results on the [facility] My Health Panel if your COVID or Flu is positive you must Quarantine for 5 days Clinical Impressions Clinical Impression: Viral upper respiratory tract infection with cough Stand Alone Forms Stand Alone Forms: Work/School Release Instructions Patient Instructions: DI for Viral Upper Respiratory Infection -- Adult Discharge ED Provider: Shelli Morley [facility] [place] HPI General Stated complaint: cough, congestion Mode of Arrival: Ambulatory Source of Information: Patient Limitations: No Limitations Time Seen by Provider: 05/26/23 11:36 Description of Symptoms (Recalled from Triage Doc. by RN): Pt's symptoms are cough, congestion, runny nose, sneezing, and ROBERTS HEENT Symptoms (Recalled from RN notes): Yes Resp Symptoms (Recalled from RN notes): No Skin Symptoms (Recalled from RN notes): No MS Symptoms (Recalled from RN notes): No Functional Status (Recalled from RN notes): n/a History of Present Illness Provider Complaint: Patient states that she has been having a cough for over a month States that she is 27wks OB an she has seen her PCP and her OBGYN for her cough and they give her medication States that over the last few days she has started with feeling achy, nasal congestion, runny nose and headache so today she came in to get checked Related Data Home Medications Medication Instructions Recorded Confirmed cetirizine 10 mg tablet (Zyrtec) 10 mg PO DAILY allergies 05/31/17 05/26/23 L.acidoph, paracasei,B. lactis 10 1 ea PO DAILY crohns 04/07/18 05/26/23 billion cell capsule azathioprine 50 mg tablet (Imuran) 50 mg PO DAILY crohns 04/07/18 05/26/23 escitalopram oxalate 10 mg tablet 10 mg PO DAILY 05/26/23 05/26/23 linaclotide 145 mcg capsule 145 mcg PO DAILY 05/26/23 05/26/23 (Linzess) ustekinumab 90 mg/mL subcutaneous See Rx Instructions .Route .COMPLEX 05/26/23 05/26/23 syringe (Stelara) Previous Rx's Medication Instructions Recorded fluticasone propionate 50 1 spr NS DAILY ##1 08/13/20 mcg/actuation nasal spray,suspension Allergies Allergy/AdvReac Type Severity Reaction Status Date / Time NSAIDS (Non-Steroidal Allergy Verified 05/26/23 11:36 Anti-Inflamma Worker's Comp Is this a Worker's Comp case?: No [facility] Disclaimer: The information contained in this section may have been updated after the patient was seen, as this information can be updated by other users. Social History Smoking Status: Never smoker second hand exposure: Yes alcohol intake: never current occupational status: other Travel in the last 8 weeks: None household members: family housing: house current occupation: [employer] current occupational exposures/hazards: Yes ROS Obtained: Yes All systems reviewed & no additional complaints except as documented and Yes Systems reviewed as appropriate & no additional complaints except as documented Constitutional Constitutional: Reports system reviewed and no additional complaints, except as documented, Reports as per HPI, Reports body ache and Reports headache(s) ENT Ears, Nose, Mouth, and Throat: Reports system reviewed and no additional complaints, except as documented, Reports as per HPI, Reports headache(s), Reports nasal congestion and Reports nasal discharge Cardiovascular Cardiovascular: Reports system reviewed and no additional complaints, except as documented and Reports as per HPI Respiratory Respiratory: Reports system reviewed and no additional complaints, except as documented, Reports as per HPI, Denies shortness of breath, Denies chest congestion, Reports cough, Denies pain on inspiration and Denies pain with cough Gastrointestinal Gastrointestingal: Reports system reviewed and no additional complaints, except as documented and as per HPI Neurologic Neurologic: Reports headache(s) Physical Exam General General appearance: alert and in no apparent distress ENT ENT exam: Present mucous membranes moist Expanded ENT Exam Nose exam: Absent sinus tenderness Throat exam: Present normal inspection Respiratory Respiratory exam: Present normal lung sounds bilaterally; Absent respiratory distress or wheezes Cardiovascular Cardiovascular exam: Present regular rate, normal rhythm and normal heart sounds Neurological Exam Neurological exam: Present alert, oriented X3 and normal gait Medical Decision Making Kong Inquiry Pt receiving controlled substance: No [place] was queried for this patient: No Vital Signs: 05/26/23 11:20 Temperature 98.3 F Temperature Source Oral Pulse Rate [Right Radial] 86 Respiratory Rate 19 Blood Pressure [Right Arm] 121/68 Blood Pressure Mean [Right Arm] 85 Blood Pressure Source [Right Arm] Automatic Cuff Blood Pressure Position [Right Arm] Sitting 02 Sat by Pulse Oximetry 98 Oxygen Delivery Method Room Air Lab Data Lab results reviewed: Yes I reviewed the patient's lab results.
[2023-05-26 11:57] LABS: UTC Influenza A Antigen Negative (Negative); UTC Influenza B Antigen Negative (Negative)
[2023-05-26 12:15] VITALS: BP 121/68; PULSE 86; RESP 18; TEMP 36.8; O2SAT 98
== END 2023-05-26 12:15 | disposition home or self-care (01) ==
PROVIDERS: Emergency Provider Nurse Practitioner; PCP Internal Medicine
DX: O26.892 Other specified pregnancy related conditions, second trimester (principal); R51.9 Headache, unspecified; Z3A.26 26 weeks gestation of pregnancy; R05.9 Cough, unspecified; J06.9 Acute upper respiratory infection, unspecified; R09.81 Nasal congestion; M79.18 Myalgia, other site; B34.9 Viral infection, unspecified
CPT/HCPCS: 87635; 87804; 99212; 99214; G0463